=== PATIENT | female | born 1995 | race Caucasian/White ===

== ENCOUNTER → 2022-04-10 | Outpatient (CLI) | payer OTHER, SELFPAY ==
[2022-04-10 18:28] LABS: Follicle Stimulating Hormone 4.3 mIU/mL; Free T3 2.4 pg/mL (2.18-3.98); Luteinizing Hormone 15.4 mIU/mL; Prolactin 8.6 ng/mL; T4 Free Direct 0.89 ng/dL (0.76-1.46); Thyroid Stim Hormone (TSH) 1.46 uIU/mL (0.358-3.74)
[2022-04-19 17:19] LABS: 17-Hydroxyprogesterone 68 ng/dL (.)
== END | disposition home or self-care (01) ==
LOC: MTLAB 15:47
PROVIDERS: PCP Internal Medicine; Referring Provider Internal Medicine; Visit Provider Internal Medicine
DX: L68.0 Hirsutism (principal)
CPT/HCPCS: 36415; 82627; 83001; 83002; 83498; 84146; 84403; 84439; 84443; 84481; 82626